=== PATIENT | male | born 1985 | race Caucasian/White ===

== ENCOUNTER → 2021-10-17 11:38 | Outpatient (BNVA) | payer MEDICAID, SELFPAY | PROVIDERS: PCP Nurse Practitioner Family; Visit Provider Surgery | DX: Z20.822 Contact with and (suspected) exposure to COVID-19 (principal) | CPT/HCPCS: 87635 ==

== ENCOUNTER 2021-10-23 09:23 | Day surgery (SDC) | payer MEDICAID, SELFPAY ==
[2021-10-22 13:36] VITALS: BMI 20.9
[2021-10-23] VITALS (15 sets, daily range): BP systolic 116–137; BP diastolic 65–95; PULSE 64–88; RESP 14–22; TEMP 36.1–36.7; O2SAT 94–100
--- NOTE | 2021-10-23 09:55 | ANES.PREANE2 ---
Pre-Anesthetic Assessment Height/Weight: Height 1.8 m Weight 68.039 kg Temp Pulse Resp BP Pulse Ox 97.6 F 75 16 129/65 96 10/23/21 09:41 10/23/21 09:41 10/23/21 09:41 10/23/21 09:41 10/23/21 09:41 Preop Diagnosis: Right gluteal mass Operation Date: 10/23/21 10:30 Proposed Procedures p Excision of right glutal mass 52519 D17.1(Right) - Michael Santacruz MD Was Beta Ramez taken within 24 hours: N/A Was Clonidine taken within 24 hours: N/A Last intake: Intake Last Liquid Date 10/22/21 Last Liquid Time 20:00 Last Solid Date 10/22/21 Last Solid Time 20:00 Social No alcohol and No tobacco Exam alert, oriented x 3, clear to auscultation bilaterally and regular rate & rhythm Airway Submandibular: within normal limits Cervical ROM: within normal limits Mallampati: Class II Comments: Comments: Poor dentition History/ROS No significant history except as noted and Other (Very anxious today) Pulmonary None reported CV/HEM None reported METS > 4 None reported GI None reported Metabolic None reported Musc/skel Pain with ambulation Neuropsych Anxiety Anesthetic Plan ASA status: 2 Anesthesia: General Other: We discussed risk and benefits of general anesthesia including PONV, sore throat (sometimes severe), corneal abrasion, positioning and peripheral nerve injuries, life threatening allergic reaction, post operative ICU admission requiring prolonged intubation, stroke, heart attack, , and rare incidences of recall. Patient consents to proceed with general anesthesia. The patient signed the consent form and I read the entirety of the consent form to the patient and he agreed to proceed. Risk of > 500 ml blood loss (7ml/kg in children): No Medications/Allergies Home Medications Medication Instructions Recorded Confirmed Last Taken Type meloxicam 7.5 mg tablet (Mobic) 7.5 mg PO DAILY #30 tab 10/04/21 10/23/21 10/22/21 Rx sertraline 50 mg tablet (Zoloft) 50 mg PO DAILY #30 tab 10/04/21 10/23/21 10/22/21 Rx ibuprofen 600 mg PO BID PRN 10/23/21 10/23/21 10/22/21 History Allergies Allergy/AdvReac Type Severity Reaction Status Date / Time No Known Allergies Allergy Verified 10/22/21 13:34 [facility] [place] Anesthesia Medical History Illiterate Social History Smoking and tobacco status: current every day smoker Alcohol intake: former History of recent travel: No Data Anesthesia Cardiac Studies: No Data to Display
[2021-10-23] MEDS: sodium chloride 0.9% 1,000 ML 30 ML IV (10:00)
[2021-10-23] MEDS: midazolam 1 mg/mL INJ 2 mL 2 MG IVP (10:05)
[2021-10-23] MEDS: acetaminophen 1,000 MG/100 ML PIGGYBACK 400 MG IV (10:05)
--- NOTE | 2021-10-23 10:11 | W.PM.OPSUD ---
Surgery/Procedure H&P Update DATE OF PROCEDURE: October 23, 2021 DATE H&P PERFORMED: 10/01/21 PREOP DIAGNOSIS: Right gluteal mass PRIMARY INDICATION FOR PROCEDURE: The same PLANNED PROCEDURE: Operation Date: 10/23/21 10:30 Proposed Procedures p Excision of right glutal mass 47619 D17.1(Right) - Michael Santacruz MD
--- NOTE | 2021-10-23 10:12 | W.PM.OPSUD ---
Surgery/Procedure H&P Update DATE OF PROCEDURE: October 23, 2021 DATE H&P PERFORMED: 10/01/21 PREOP DIAGNOSIS: Right gluteal mass PRIMARY INDICATION FOR PROCEDURE: The same PLANNED PROCEDURE: Operation Date: 10/23/21 10:30 Proposed Procedures p Excision of right glutal mass 48500 D17.1(Right) - Michael Santacruz MD
[2021-10-23] MEDS: lidocaine 2% INJ 20 mL INJECTION (10:44)
--- NOTE | 2021-10-23 11:04 | PM.OP ---
Operative Report Date of procedure: October 23, 2021 Pre-op diagnosis: Preop Diagnosis Right gluteal mass Post-op diagnosis: Right gluteal sebaceous cyst Procedure done: Excision of right gluteal mass 7 x 7 cm Specimens removed/disposition: Right gluteal sebaceous cyst Surgeon: Michael Santacruz MD Metallurgical Specialist: Surgical Mitchell Estrada Anesthesia: General (REYES Martin, Dr. Braun and Dr. Maloney) IV fluids: 800 Procedure: Excision of right gluteal sebaceous cyst After identifying the patient holding area, rught gluteal mass was marked before the procedure by myself, patient was then taken to the operative suite, was placed in left lateral position,after being intubated per anathesias and all pressure points were padded, IV antibiotics were given per protocol. prep and drape of the right gluteus region was done under the usual sterile technique. Time-out was done verifying the patient's name/date of /planned procedure and destination after the procedure, all were in agreement. After palpation of the mass.Infiltration of lidocaine 2%.I did an oblique incision on top of the mass . I was able to dissect using sharp dissection and the whole cyst was excised from the surrounding SC tissues,sebum was appreciated ,the whole cyst was removed 7x7 cm.and passed to the circulating nurse for permnnant pathology. Thorough and copious irrigation of the cavity was done and hemostasis, followed by deep dermal closure by 2-0 Vicryl, then 4/0 monocryl for skin closure followed by dermabond and pressure dressing. Patient tolerated the procedure well, count of instruments,needles and sponges were completed at the end of the procedure. And then patient was taken to the recovery area in stable condition after extubation. I was present for the whole entire procedure
[2021-10-23] MEDS: fentaNYL 50 mcg/mL INJ 2mL IVP ×2 (11:45→11:53)
[2021-10-23] MEDS: HYDROcodone-acetaminophen 5-325 mg Tablet 1 TAB PO (13:03)
--- NOTE | 2021-10-23 15:14 | ANE.PACU2 ---
Inpatient post-anesthesia follow up: Airway intact: Yes Vital signs: Temperature 98.0 F Pulse Rate 64 Respiratory Rate 16 Blood Pressure 137/81 Pulse Oximetry 98 Oxygen Delivery Me thod Room Air Oxygen Flow Rate Fraction of Inspir ed Oxygen Hydration adequate: Yes Nausea and vomiting: No Pain level: 5 Mental status: Baseline
== END 2021-10-23 13:05 | disposition home or self-care (01) ==
PROVIDERS: PCP Nurse Practitioner Family; Visit Provider Surgery
PROC: (CPT 27043; principal; 2021-10-23 10:30)
DX: D17.1 Benign lipomatous neoplasm of skin and subcutaneous tissue of trunk (principal); F17.210 Nicotine dependence, cigarettes, uncomplicated
CPT/HCPCS: 27043; 88304; 96374; J0330; J0690; J1100; J2250; J2405; J2704; J3010; J7030